=== PATIENT | male | born 1970 | race Hispanic/Latino ===

== ENCOUNTER 2017-09-20 14:19 | Emergency (ER) | payer MEDICAID ==
[2017-09-20 14:57] VITALS: RESP 18; TEMP 98.1
[2017-09-20 15:42] LABS: PH,URINE 5.5 (4.7-8.0); URINE BILIRUBIN SMALL (NEGATIVE); URINE BLOOD LARGE (NEGATIVE); URINE GLUCOSE (UA) NEGATIVE (NEGATIVE); URINE LEUKOCYTE ESTERASE TRACE Leu/uL (NEGATIVE); URINE NITRATE POSITIVE (NEGATIVE); URINE PROTEIN 100 mg/dL (<30 mg/dL)
[2017-09-20] MEDS ORDERED: Sodium Chloride 0.9% 1,000 ML IV STA (15:42)
[2017-09-20 15:43] LABS: URINE APPEARANCE CLOUDY (CLEAR); URINE COLOR RED (YELLOW)
[2017-09-20 15:49] LABS: URINE RBC TNTC /hpf (0-2)
[2017-09-20 15:50] LABS: URINE BACTERIA MANY (NEG)
--- NOTE | 2017-09-20 16:07 | ED PDOC ---
Arrival/HPI - General Chief Complaint: Male Genitourinary Time Seen by Provider: 09/20/17 15:29 Historian: Patient - History of Present Illness Narrative History of Present Illness (Text): 09/20/17 16:04 A 47 year old male, whose past medical history includes diabetes, kidney stones , and hepatitis c, presents to the emergency department complaining of left flank pain for 4 days. History obtained through computer talent partner #[id number]. Patient notes blood in urine and increased frequency. He reports he has been eating and drinking without any difficulties. Patient denies any fever, chills, nausea, vomiting, abdominal pain, dysuria, penile pain, testicular pain, chest pain, shortness of breath or any other complaints. Patient reports while in [place] he was diagnosed with kidney stones, given lithotripsy, and only passed 2 out of 3 stones. PMD: Dr. Collado Time/Duration: Other (4 days) Symptom Course: Unchanged Quality: Other Context: Home Past Medical History - Provider Review Nursing Documentation Reviewed: Yes - Infectious Disease Hx of Infectious Diseases: None - Cardiac Hx Cardiac Disorders: No - Pulmonary Hx Respiratory Disorders: No - Neurological Hx Neurological Disorder: No - HEENT Hx HEENT Disorder: No - Renal Hx Renal Disorder: Yes Hx Kidney Stones: Yes - Endocrine/Metabolic Hx Endocrine Disorders: Yes Hx Diabetes Mellitus Type 2: Yes - Hematological/Oncological Hx Blood Disorders: Yes Hx Hepatitis C: Yes - Integumentary Hx Dermatological Disorder: No - Musculoskeletal/Rheumatological Hx Musculoskeletal Disorders: No - Gastrointestinal Hx Gastrointestinal Disorders: Yes Other/Comment: HEP C - Genitourinary/Gynecological Hx Genitourinary Disorders: Yes Other/Comment: KIDNEY STONES - Psychiatric Hx Substance Use: No - Surgical History Other/Comment: L KIDNEY R/T STONES - Anesthesia Hx Anesthesia: Yes Family/Social History - Physician Review Nursing Documentation Reviewed: Yes Family/Social History: No Known Family HX Smoking Status: Light Smoker < 10 Cigarettes Daily Hx Alcohol Use: No Hx Substance Use: No Allergies/Home Meds Allergies/Adverse Reactions: Allergies No Known Allergies Allergy (Verified 09/20/17 14:52) Review of Systems - Physician Review All systems were reviewed & negative as marked: Yes - Review of Systems Constitutional: absent: Fevers, Night Sweats Respiratory: absent: SOB Cardiovascular: absent: Chest Pain Gastrointestinal: absent: Abdominal Pain, Nausea, Vomiting, Appetite Changes Genitourinary Male: Frequency, Hematuria. absent: Dysuria, Other (Penile or testicular pain) Physical Exam Vital Signs Reviewed: Yes Vital Signs Temp Pulse Resp BP Pulse Ox 09/20/17 17:47 79 18 118/71 98 09/20/17 16:42 89 18 121/79 98 09/20/17 14:53 98.1 F 99 H 18 119/82 97 Temperature: Afebrile Blood Pressure: Normal Pulse: Tachycardic Respiratory Rate: Normal Appearance: Positive for: Well-Appearing, Non-Toxic, Comfortable Pain Distress: None Mental Status: Positive for: Alert and Oriented X 3 - Systems Exam Head: Present: Atraumatic, Normocephalic Pupils: Present: PERRL Extroacular Muscles: Present: EOMI Conjunctiva: Present: Normal Mouth: Present: Moist Mucous Membranes Neck: Present: Normal Range of Motion Respiratory/Chest: Present: Clear to Auscultation, Good Air Exchange. No: Respiratory Distress, Accessory Muscle Use Cardiovascular: Present: Regular Rate and Rhythm, Normal S1, S2. No: Murmurs Abdomen: Present: Normal Bowel Sounds. No: Tenderness, Distention, Peritoneal Signs Back: Present: CVA Tenderness (Left CVA tenderness) Upper Extremity: Present: Normal Inspection. No: Cyanosis, Edema Lower Extremity: Present: Normal Inspection. No: Edema Neurological: Present: GCS=15, CN II-XII Intact, Speech Normal Skin: Present: Warm, Dry, Normal Color. No: Rashes Psychiatric: Present: Alert, Oriented x 3, Normal Insight, Normal Concentration Medical Decision Making ED Course and Treatment: 09/20/17 16:04 Impression: A 47 year old male with left flank pain. Patient notes hematuria and increased frequency. Differential Diagnosis included but are not limited to: Left flank pain rule out Kidney Stone Plan: -- Abdominal CT -- Labs -- Urine culture -- Toradol and IV fluids -- Reassess and disposition Progress Notes: Report Date : 09/20/2017 17:30:46 PROCEDURE: CT Abdomen and Pelvis without Oral or IV contrast. Dictator : Deborah Womack MD IMPRESSION: Partially calcified 3.9 x 2.6 cm left adrenal gland mass. Nonobstructing 9 mm left lower pole renal calculus. 3 mm calculus within the proximal right ureter without evidence of hydronephrosis. Additional nonobstructing 3 mm right lower pole renal calculus. No hydronephrosis bilaterally. Case discussed with Dr. Flores, who agrees with plan to have patient continue on Motrin, Keflex and Flomax. States he will see patient tomorrow morning in his office. Spoke with patient, through talent partner [employer] #[id number]. Discussed CT, lab and urinalysis results. Instructed patient to continue taking Motrin, Keflex and Flomax at home as prescribed. I explained to patient the importance of following up with Dr. Flores tomorrow at 10:00 am for his scheduled appointment at the [facility]. - Lab Interpretations Microbiology Results: Microbiology Results 09/20/17 15:21 Urine Urine Culture - Final No Growth (<1,000 CFU/ML) Lab Results: 09/20/17 16:00 09/20/17 16:00 Lab Results 09/20/17 16:00: Sodium 138, Potassium 4.3, Chloride 100, Carbon Dioxide 26, Anion Gap 16, BUN 15, Creatinine 0.8, Est GFR ( Amer) > 60, Est GFR (Non- Af Amer) > 60, Random Glucose 125 H, Calcium 9.9, Total Bilirubin 0.4, AST 35, ALT 63 H, Alkaline Phosphatase 58, Total Protein 8.1, Albumin 4.4, Globulin 3.7 , Albumin/Globulin Ratio 1.2 09/20/17 16:00: WBC 6.8 D, RBC 5.20, Hgb 14.4, Hct 44.1, MCV 84.8, MCH 27.7, MCHC 32.7, RDW 13.7, Plt Count 132, MPV 12.3 H, Gran % 52.3, Lymph % (Auto) 34.9 , [place] % (Auto) 8.7 H, Eos % (Auto) 3.5, Baso % (Auto) 0.6, Gran # 3.55, Lymph # 2.4, [place] # 0.6, Eos # 0.2, Baso # 0.04 09/20/17 15:21: Urine Color Red, Urine Appearance Cloudy, Urine pH 5.5, Ur Specific [place] >= 1.030, Urine Protein 100 H, Urine Glucose (UA) Negative, Urine Ketones Trace H, Urine Blood Large H, Urine Nitrate Positive H, Urine Bilirubin Small H, Urine Urobilinogen 1.0 H, Ur Leukocyte Esterase Trace H, Urine RBC Tntc, Urine WBC 10 - 15, Ur Epithelial Cells 6 - 8, Urine Bacteria Many I have reviewed the lab results: Yes - RAD Interpretation Radiology Orders: 09/20/17 15:42 ABD & PELVIS W/O PO OR IV CONT [CT] Stat - Medication Orders Current Medication Orders: Discontinued Medications Cephalexin Monohydrate (Keflex) 500 mg PO STAT STA PRN Reason: Protocol Stop: 09/20/17 17:43 Last Admin: 09/20/17 18:37 Dose: 500 mg Sodium Chloride (Sodium Chloride 0.9%) 1,000 mls @ 999 mls/hr IV .Q1H1M STA Stop: 09/20/17 16:42 Last Admin: 09/20/17 15:59 Dose: 999 mls/hr eMAR Start Stop Document 09/20/17 15:59 GMD (Rec: 09/20/17 15:59 GMD [id number]) Intravenous Solution Start Date 09/20/17 Start Time 15:59 End Date 09/20/17 End time 17:00 Total Infusion Time 61 Ketorolac Tromethamine (Toradol) 30 mg IVP STAT STA Stop: 09/20/17 15:42 Last Admin: 09/20/17 15:59 Dose: 30 mg MAR Pain Assessment Document 09/20/17 15:59 GMD (Rec: 09/20/17 15:59 GMD [place] [id number]) Pain Reassessment Is this a pain reassessment? No Sleep Is patient sleeping during reassessment? No Presence of Pain Presence of Pain Yes IVP Administration Document 09/20/17 15:59 GMD (Rec: 09/20/17 15:[id number]) Charges for Administration # of IVP Administrations 1 Tamsulosin HCl (Flomax) 0.4 mg PO STAT STA Stop: 09/20/17 18:24 Last Admin: 09/20/17 18:37 Dose: 0.4 mg - Scribe Statement The provider has reviewed the documentation as recorded by the Edenilsonibe Raegan Renee Provider Scribe Attestation: All medical record entries made by the Scribe were at my direction and personally dictated by me. I have reviewed the chart and agree that the record accurately reflects my personal performance of the history, physical exam, medical decision making, and the department course for this patient. I have also personally directed, reviewed, and agree with the discharge instructions and disposition. Disposition/Present on Arrival - Present on Arrival Any Indicators Present on Arrival: Yes History of DVT/PE: No History of Uncontrolled Diabetes: Yes Urinary Catheter: No History of Decub. Ulcer: No History Surgical Site Infection Following: None - Disposition Have Diagnosis and Disposition been Completed?: Yes Diagnosis: Kidney stone, UTI (urinary tract infection) Disposition: HOME/ ROUTINE Disposition Time: 18:37 Patient Plan: Discharge Condition: IMPROVED Discharge Instructions (ExitCare): Kidney Stones (ED), Urinary Tract Infection in Men (ED) Additional Instructions: Mr Sandoval, thank you for letting us take care of you today. Your provider was Dr. Kapoor. You were treated for UTI, Kidney Stone. The emergency medical care you received today was directed at your acute symptoms. If you were prescribed any medication, please fill it and take as directed. It may take several days for your symptoms to resolve. Return to the Emergency Department if your symptoms worsen, do not improve, or if you have any other problems. Make sure to see Dr. Flores tomorrow at 10 am in his [place] office at: [facility] [place] [address] Please contact your doctor or call one of the physicians/clinics you have been referred to that are listed on the Patient Visit Information form that is included in your discharge packet. Bring any paperwork you were given at discharge with you along with any medications you are taking to your follow up visit. Our treatment cannot replace ongoing medical care by a primary care provider (PCP) outside of the emergency department. Thank you for allowing the [facility] team to be part of your care today. If you had an X-Ray or CT scan: A Radiologist will review the ED reading if any change in treatment is needed we will contact you. If you had a blood, urine, or wound culture: It will take several days for the results, if any change in treatment is needed we will contact you. If you had an STI test: It will take 48 hours for the results. Please call after 1 week if you have not heard back. Prescriptions: Cephalexin [Keflex] 500 mg PO BID #14 capsule Ibuprofen [Motrin] 600 mg PO Q6 PRN #30 tab PRN Reason: Pain, Moderate (4-7) Tamsulosin HCl [Flomax] 0.4 mg PO HS #20 cap.er.24h Referrals: Jacey Collado MD [Primary Care Provider] - Follow up with primary Nate Flores MD [Staff Provider] - Follow up with primary Forms: [employer] ([place])
[2017-09-20 16:12] LABS: BASO # 0.04 K/mm3 (0.0-2.0); BASO % 0.6 % (0.0-3.0); EOS # 0.2 (0.0-0.7); EOS % 3.5 % (1.5-5.0); GRAN # 3.55 (1.4-6.5); GRAN % 52.3 % (50.0-68.0); HEMOGLOBIN 14.4 g/dL (14.0-18.0); LYMPH # 2.4 (1.2-3.4); LYMPH % 34.9 % (22.0-35.0); MEAN CELL VOLUME 84.8 fl (80.0-105.0); MEAN CORPUSCULAR HEMOGLOBIN 27.7 pg (25.0-35.0); MEAN CORPUSCULAR HGB CONC 32.7 g/dl (31.0-37.0); MEAN PLATELET VOLUME 12.3 fl (7.0-11.0); MONO # 0.6 (0.1-0.6); MONO % 8.7 % (1.0-6.0); RBC 5.2 10^6/uL (3.5-6.1); RED CELL DISTRIBUTION WIDTH 13.7 % (11.5-14.5); WHITE BLOOD COUNT 6.8 10^3/ul (4.5-11.0)
[2017-09-20 16:33] LABS: ALB/GLOB RATIO 1.2 (1.1-1.8); ALBUMIN 4.4 g/dL (3.0-4.8); ALT/SGPT 63 U/L (7-56); AST/SGOT 35 U/L (17-59); BLOOD UREA NITROGEN 15 mg/dL (7-21); CALCIUM 9.9 mg/dL (8.4-10.5); GFR AFRICAN-AMERICAN > 60; GFR NON-AFRICAN AMERICAN > 60
[2017-09-20 16:42] VITALS: O2SAT 98
--- NOTE | 2017-09-20 17:32 | CT ---
PROCEDURE: CT Abdomen and Pelvis without Oral or IV contrast. HISTORY: left flank pain r/o kidney stone COMPARISON: CT abdomen chest performed 06/18/16 TECHNIQUE: Contiguous axial images of the abdomen and pelvis. No oral or IV contrast administered. Coronal and Sagittal reformats generated. Radiation dose: Total exam DLP = 1029.62 mGy-cm. This CT exam was performed using one or more of the following dose reduction techniques: Automated exposure control, adjustment of the mA and/or kV according to patient size, and/or use of iterative reconstruction technique. FINDINGS: There is limited evaluation of the solid organs without the administration of IV contrast. LOWER THORAX: No visible consolidation, pleural effusion, or pneumothorax. GALLBLADDER AND BILE DUCTS: Unremarkable. PANCREAS: Unremarkable. SPLEEN: Splenomegaly. At least 2 probable splenules. ADRENALS: Partially calcified 3.9 x 2.6 cm left adrenal gland mass. Unenhanced unremarkable appearance of the right adrenal gland. KIDNEYS AND URETERS: Nonobstructing 9 mm left lower pole renal calculus. 3 mm calculus within the proximal right ureter without evidence of hydronephrosis. Additional nonobstructing 3 mm right lower pole renal calculus. No hydronephrosis bilaterally. BLADDER: The urinary bladder appears unremarkable. REPRODUCTIVE: Uterus is present. APPENDIX: The appendix is not identified. No secondary signs of acute appendicitis. BOWEL: The stomach is nondistended. Lack of oral contrast limits evaluation for bowel pathology. The bowel loops appear within normal limits of caliber without evidence of intestinal obstruction. PERITONEUM: No significant free fluid. No definite free air. LYMPH NODES: No bulky lymphadenopathy identified. VASCULATURE: No aortic aneurysm. BONES: No acute osseous abnormality is detected. OTHER FINDINGS: None. IMPRESSION: Partially calcified 3.9 x 2.6 cm left adrenal gland mass. Nonobstructing 9 mm left lower pole renal calculus. 3 mm calculus within the proximal right ureter without evidence of hydronephrosis. Additional nonobstructing 3 mm right lower pole renal calculus. No hydronephrosis bilaterally.
[2017-09-20 17:47] VITALS: BP 118/71; PULSE 79
== END 2017-09-20 18:37 | disposition home or self-care (01) ==
LOC: ED 14:19
DX: N20.0 Calculus of kidney (principal); N39.0 Urinary tract infection, site not specified
CPT/HCPCS: 74176; 80053; 81001; 85025; 87086; 96361; 96374; 99284; J1885; J7040

== ENCOUNTER 2017-09-21 14:26 | Emergency (ER) | payer MEDICAID ==
[2017-09-21 14:30] VITALS: BMI 35.2
[2017-09-21 14:34] VITALS: BP 126/81; PULSE 79; RESP 18; TEMP 97.8; O2SAT 100
--- NOTE | 2017-09-21 14:41 | ED PDOC ---
Arrival/HPI - General Chief Complaint: Back Pain Time Seen by Provider: 09/21/17 14:41 Historian: Patient - History of Present Illness Narrative History of Present Illness (Text): 09/21/17 14:41 A 47 year old male, whose past medical history includes diabetes, kidney stones , and hepatitis c, presents to the emergency department stating that Dr. Flores told him to come to ED for revaluation of left flank pain. Patient stated he was Dx. Renal stone, and he continues with pain. Patient denies other complains. Patient history was taken with use of viscose cellar charge hand, Mrs. Everardo Frias. #[id number]. Time/Duration: Other (see hpi) Context: Home Past Medical History - Provider Review Nursing Documentation Reviewed: Yes - Infectious Disease Hx of Infectious Diseases: None - Cardiac Hx Cardiac Disorders: No - Pulmonary Hx Respiratory Disorders: No - Neurological Hx Neurological Disorder: No - HEENT Hx HEENT Disorder: No - Renal Hx Renal Disorder: Yes Hx Kidney Stones: Yes - Endocrine/Metabolic Hx Endocrine Disorders: Yes Hx Diabetes Mellitus Type 2: Yes - Hematological/Oncological Hx Blood Disorders: Yes Hx Hepatitis C: Yes - Integumentary Hx Dermatological Disorder: No - Musculoskeletal/Rheumatological Hx Musculoskeletal Disorders: No - Gastrointestinal Hx Gastrointestinal Disorders: Yes Other/Comment: HEP C - Genitourinary/Gynecological Hx Genitourinary Disorders: Yes Other/Comment: KIDNEY STONES - Psychiatric Hx Substance Use: No - Surgical History Other/Comment: L KIDNEY R/T STONES - Anesthesia Hx Anesthesia: Yes Hx Anesthesia Reactions: No Hx Malignant Hyperthermia: No Family/Social History - Physician Review Nursing Documentation Reviewed: Yes Family/Social History: Other (noncontributory) Smoking Status: Light Smoker < 10 Cigarettes Daily Hx Alcohol Use: No Hx Substance Use: No Allergies/Home Meds Allergies/Adverse Reactions: Allergies No Known Allergies Allergy (Verified 09/20/17 14:52) Review of Systems - Review of Systems Constitutional: Normal. absent: Fatigue, Weight Change, Fevers Eyes: Normal ENT: Normal Respiratory: Normal Cardiovascular: Normal Gastrointestinal: Other (left flank pain) Genitourinary Male: Normal Musculoskeletal: Normal Skin: Normal Neurological: Normal Endocrine: Normal Hemo/Lymphatic: Normal Psychiatric: Normal Physical Exam Vital Signs Temp Pulse Resp BP Pulse Ox 09/21/17 14:26 97.8 F 79 18 126/81 100 Temperature: Afebrile Blood Pressure: Normal Pulse: Regular Respiratory Rate: Normal Appearance: Positive for: Well-Appearing, Non-Toxic, Comfortable Pain Distress: None Mental Status: Positive for: Alert and Oriented X 3 - Systems Exam Head: Present: Atraumatic, Normocephalic Pupils: Present: PERRL Extroacular Muscles: Present: EOMI Conjunctiva: Present: Normal Mouth: Present: Moist Mucous Membranes Neck: Present: Normal Range of Motion Respiratory/Chest: Present: Clear to Auscultation, Good Air Exchange. No: Respiratory Distress, Accessory Muscle Use Cardiovascular: Present: Regular Rate and Rhythm, Normal S1, S2. No: Murmurs Abdomen: Present: Tenderness (mild left flank tenderness.), Normal Bowel Sounds. No: Distention, Peritoneal Signs Back: Present: Normal Inspection Upper Extremity: Present: Normal Inspection. No: Cyanosis, Edema Lower Extremity: Present: Normal Inspection. No: Edema Neurological: Present: GCS=15, CN II-XII Intact, Speech Normal Skin: Present: Warm, Dry, Normal Color. No: Rashes Psychiatric: Present: Alert, Oriented x 3, Normal Insight, Normal Concentration Medical Decision Making ED Course and Treatment: 09/21/17 14:47 Patient came to ED for surgical procedure by DR. Flores. According to patient , he was told to come today at [address] Flores. Patient is refusing any labs, or medication till seen by Dr. Flores. Patient is angry that I am asking him question about his pain, and medical history since all information is in the computer. He stated to viscose cellar charge hand that he dislike this hospital, and he consider this hospital as "garbage". He only came to this hospital because Dr. Flores told him to come. 09/21/17 14:58 I have left a voice message to Dr. Flores cellphone answer system 09/21/17 15:[address] Flores called again. 09/21/17 15:37 Patient told patient he does not want pain medication or blood test. 09/21/17 16:33 I had ED director calling Dr. Flores 09/21/17 16:53 Dr. Ashley Flores called me back. He stated to keep patient NPO. He said he will text Dr. Nate Flores, and he also recommending me to keep trying calling Dr. Flores. 09/21/17 16:55 I explained patient the reason of the delay. Patient does not wan to wait any longer. Patient is angry and he wants to leave ED. 09/21/17 16:57 I reviewed AMA form with patient regarding risk in leaving AMA. Patient refused my recommendation, and he understood risk. Patient's son has been in the ED during most of patient ED visit. Son also understood my recommendation and risk. I signed the form, but he refused to sign the AMA form. Leaving Against Medical Advice (AMA): This patient is choosing to leave against medical advice. The EP has personally explained to the pt that choosing to do so may result in permanent bodily harm or . The EP discussed at great length that without further evaluation and monitoring there may be unforeseen circumstances and/or deterioration causing permanent bodily harm or as a result of their choice. The pt verbalized these risks back to the physician in laymans terms. The pt is alert, oriented, and shows the mental capacity to make clear decisions regarding the pts health care at this time. The pt continues to wish to leave against medical advice. In light of the pts decision to leave AMA, follow-up has been recommended and the pt is aware of the importance of following up as instructed. The pt has been advised that they should return to the ED immediately if they change their mind at any time, or if condition begins to change or worsen in any way. Re-evaluation Time: 17:00 Reassessment Condition: Re-examined, Unchanged - Lab Interpretations I have reviewed the lab results: Yes (from yesterday. Patient refused new labs) - Medication Orders Current Medication Orders: Discontinued Medications Sodium Chloride (Sodium Chloride 0.9%) 1,000 mls @ 999 mls/hr IV .Q1H1M STA Stop: 09/21/17 16:21 Last Admin: 09/21/17 16:55 Dose: Not Given Non-Admin Reason: Patient Refused Ketorolac Tromethamine (Toradol) 15 mg IVP STAT STA Stop: 09/21/17 15:22 Last Admin: 09/21/17 16:56 Dose: Not Given Non-Admin Reason: Patient Refused Disposition/Present on Arrival - Present on Arrival Any Indicators Present on Arrival: No History of DVT/PE: No History of Uncontrolled Diabetes: Yes Urinary Catheter: No History of Decub. Ulcer: No History Surgical Site Infection Following: None - Disposition Have Diagnosis and Disposition been Completed?: Yes Diagnosis: Left flank pain, Renal stone Disposition: AGAINST MEDICAL ADVICE Disposition Time: 17:00 Condition: UNKNOWN Additional Instructions: Call Dr. Sandra HAGEN. Return to emergency at any time for worsening of symptoms. Continue with Keflex as instructed by doctor. Referrals: Jacey Collado MD [Primary Care Provider] - Follow up with primary Nate Flores MD [Staff Provider] - Follow up with primary Forms: [employer] ([place])
[2017-09-21] MEDS ORDERED: Sodium Chloride 0.9% 1,000 ML IV STA (15:21)
== END 2017-09-21 16:55 | disposition left against medical advice (07) ==
LOC: ED 14:26
DX: N20.0 Calculus of kidney (principal); R10.9 Unspecified abdominal pain

== ENCOUNTER 2017-12-10 11:19 | Emergency (ER) | payer MEDICAID ==
[2017-12-10] MEDS ORDERED: Sodium Chloride 0.9% 500 ML IV STA (11:38)
--- NOTE | 2017-12-10 11:42 | ED PDOC ---
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 Patient also complains of associated nausea, vomiting, and hematuria. Patient denies any diarrhea, fever, chills, chest pain, shortness of breath, neck pain, headache, dizziness, or any other complaints. [employer] Server #[id number] used to obtain history. 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 Unclear if the patient had a lithotripsy or cystoscopy in [place] last month for a left kidney stone. No fever. Past Medical History - Provider Review Nursing Documentation Reviewed: Yes - Infectious Disease Hx of Infectious Diseases: None - Cardiac Hx Cardiac Disorders: No - Pulmonary Hx Respiratory Disorders: No - Neurological Hx Neurological Disorder: No - HEENT Hx HEENT Disorder: No - Renal Hx Renal Disorder: Yes Hx Kidney Stones: Yes - Endocrine/Metabolic Hx Endocrine Disorders: Yes Hx Diabetes Mellitus Type 2: Yes - Hematological/Oncological Hx Blood Disorders: Yes Hx Hepatitis C: Yes - Integumentary Hx Dermatological Disorder: No - Musculoskeletal/Rheumatological Hx Musculoskeletal Disorders: No - Gastrointestinal Hx Gastrointestinal Disorders: Yes Other/Comment: HEP C - Genitourinary/Gynecological Hx Genitourinary Disorders: Yes Other/Comment: KIDNEY STONES - Psychiatric Hx Substance Use: No - Surgical History Other/Comment: L KIDNEY R/T STONES - Anesthesia Hx Anesthesia: Yes Family/Social History - Physician Review Nursing Documentation Reviewed: Yes Family/Social History: Unknown Family HX Smoking Status: Light Smoker < 10 Cigarettes Daily Hx Alcohol Use: No Hx Substance Use: No Allergies/Home Meds Allergies/Adverse Reactions: Allergies No Known Allergies Allergy (Verified 09/20/17 14:52) Home Medications: Home Meds Medication Instructions Recorded Confirmed Metformin HCl [Glucophage] 1,000 mg PO BID 12/10/17 12/10/17 Review of Systems - Physician Review All systems were reviewed & negative as marked: Yes - Review of Systems Constitutional: absent: Fevers Respiratory: absent: SOB Cardiovascular: absent: Chest Pain Gastrointestinal: Abdominal Pain, Nausea, Vomiting. absent: Diarrhea Genitourinary Male: Frequency, Hematuria Musculoskeletal: Back Pain (right flank pain). absent: Neck Pain Neurological: absent: Headache, Dizziness Physical Exam Vital Signs Reviewed: Yes Vital Signs Temp Pulse Resp BP Pulse Ox 12/10/17 12:07 84 16 148/94 H 98 12/10/17 11:41 98.1 F 95 H 20 153/110 H 99 12/10/17 11:19 98.1 F 95 H 20 153/110 H 99 Temperature: Afebrile Blood Pressure: Hypertensive Pulse: Regular Respiratory Rate: Normal Appearance: Positive for: Uncomfortable, Other (obese) Pain Distress: Moderate Mental Status: Positive for: other (Awake and alert) - Systems Exam Head: Present: Atraumatic, Normocephalic Pupils: Present: PERRL Extroacular Muscles: Present: EOMI Conjunctiva: Present: Normal Mouth: Present: Moist Mucous Membranes Neck: Present: Normal Range of Motion Respiratory/Chest: Present: Clear to Auscultation, Good Air Exchange. No: Respiratory Distress, Accessory Muscle Use Cardiovascular: Present: Regular Rate and Rhythm, Normal S1, S2. No: Murmurs Abdomen: Present: Normal Bowel Sounds. No: Tenderness, Distention, Peritoneal Signs, Rebound, Guarding Back: Present: Normal Inspection Upper Extremity: Present: Normal Inspection. No: Cyanosis, Edema Lower Extremity: Present: Normal Inspection. No: Edema Neurological: Present: GCS=15, CN II-XII Intact, Speech Normal, Motor Func Grossly Intact Skin: Present: Warm, Normal Color, Diaphoretic. No: Rashes Psychiatric: Present: Alert Medical Decision Making ED Course and Treatment: 12/10/17 11:46 Impression: 47 year old male presents to the Emergency department complaining of right flank and right lower quadrant pain. Differential Diagnosis included but are not limited to: kidney stone Plan: -- CT scan of the abdomen and pelvis -- Urinalysis -- Labs -- Toradol, Zofran, Soidum Chloride IV fluids -- Reassess and disposition Prior Visits: Notes and results from previous visits were reviewed. Patient was last seen in the emergency department on 09/21/17 for left flank pain. Patient was diagnosed with left flank pain and renal stone but he left against medical advice. Progress Notes: 12/10/17 13:36 Symptoms have markedly improved. Patient will be discharged home with pain medication and to follow-up with his urologist Dr. Flores. Follow up in the ER as needed. - Lab Interpretations Lab Results: 12/10/17 11:40 12/10/17 11:40 Lab Results 12/10/17 12:00: Urine Color Yellow, Urine Appearance Cloudy, Urine pH 6.0, Ur Specific Connell 1.025, Urine Protein 30 H, Urine Glucose (UA) >=1000, Urine Ketones Negative, Urine Blood Large H, Urine Nitrate Negative, Urine Bilirubin Negative, Urine Urobilinogen 0.2, Ur Leukocyte Esterase Negative, Urine RBC Tntc , Urine WBC 0 - 2, Urine Bacteria Few 12/10/17 11:40: Sodium 136, Potassium 4.2, Chloride 101, Carbon Dioxide 24, Anion Gap 14, BUN 22 H, Creatinine 1.1, Est GFR ( Amer) > 60, Est GFR ( Non-Af Amer) > 60, Random Glucose 276 H, Calcium 9.6, Total Bilirubin 0.4, AST 28, ALT 51, Alkaline Phosphatase 56, Total Protein 7.2, Albumin 4.0, Globulin 3.2, Albumin/Globulin Ratio 1.2, Lipase 107 12/10/17 11:40: WBC 7.7, RBC 4.94, Hgb 13.5 L, Hct 40.7 L, MCV 82.4, MCH 27.3, MCHC 33.2, RDW 13.6, Plt Count 115 L, MPV 12.3 H, Gran % 68.0, Lymph % (Auto) 18.8 L, Lane % (Auto) 10.2 H, Eos % (Auto) 2.6, Baso % (Auto) 0.4, Gran # 5.22, Lymph # (Auto) 1.4, Lane # (Auto) 0.8 H, Eos # (Auto) 0.2, Baso # (Auto) 0.03 - RAD Interpretation Narrative RAD Interpretations (Text): 12/10/2017 13:10:43 PROCEDURE: CT Abdomen and Pelvis without intravenous contrast FINDINGS: LOWER THORAX: Unremarkable. LIVER: Hepatomegaly is again noted. Heterogeneous low-attenuation of the liver is again noted suggestive but nonspecific for zmgw-[id number]-tkdfrbma hepatic steatosis. GALLBLADDER AND BILE DUCTS: No evidence of acute cholecystitis. PANCREAS: Unremarkable. No gross lesion or ductal dilatation. SPLEEN: The spleen is mildly enlarged. ADRENALS: Again seen is left adrenal bipolar mass measures 3.6 centimeter in the largest AP diameter and 2.9 centimeter in the transverse diameter contains neural calcification. The right adrenal gland is grossly unremarkable. KIDNEYS AND URETERS: Interval appearance of vtkw-vs-vcacwert right hydronephrosis and hydroureter up to 6 millimeter calculus at the mid right ureter. There is a qtsk-qu-xxipithc right perinephric stranding. Punctate less than 2 millimeter calcification at the right kidney are noted may represent nonobstructing renal calculi. There is 3 millimeter nonobstructing calculus at the midpole of the left kidney. There is also 9 millimeter calcification at the lower pole of the left kidney. Mildly dilated left renal pelvis is again noted. The left ureter is not dilated. VASCULATURE: Unremarkable. No aortic aneurysm. BOWEL: Unremarkable. No obstruction. No gross mural thickening. APPENDIX: There is no evidence of appendicitis. PERITONEUM: Unremarkable. No free fluid. No free air. LYMPH NODES: Unremarkable. No enlarged lymph nodes. BLADDER: Unremarkable. REPRODUCTIVE: Unremarkable. BONES: No acute fracture. OTHER FINDINGS: None. IMPRESSION: Urak-cy-zroakdpw right hydronephrosis and hydroureter up to 6 millimeter calculus at the mid right ureter. Nonobstructing left renal calculi. Otherwise no evidence of acute pathology in the abdomen and pelvis. 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 - Medication Orders Current Medication Orders: Discontinued Medications Sodium Chloride (Sodium Chloride 0.9%) 500 mls @ 1,000 mls/hr IV .Q30M STA Stop: 12/10/17 12:07 Last Admin: 12/10/17 12:05 Dose: 1,000 mls/hr eMAR Start Stop Document 12/10/17 12:05 SRE (Rec: 12/10/17 12:05 SRE [id number]) Intravenous Solution Start Date 12/10/17 Start Time 11:40 End Date 12/10/17 End time 12:10 Total Infusion Time 30 Ketorolac Tromethamine (Toradol) 30 mg IVP STAT STA Stop: 12/10/17 11:39 Last Admin: 12/10/17 11:50 Dose: 30 mg MAR Pain Assessment Document 12/10/17 11:50 SRE (Rec: 12/10/17 12:03 SRE [id number]) Pain Reassessment Is this a pain reassessment? Yes Sleep Is patient sleeping during reassessment? No Presence of Pain Presence of Pain Yes Pain Scale Used Pain Scale Used Numeric Location Left, Right or Bilateral Right Pain Location Body Site Abdomen Description Description Constant IVP Administration Document 12/10/17 11:50 SRE (Rec: 12/10/17 12:03 SRE [id number]) Charges for Administration # of IVP Administrations 1 Ondansetron HCl (Zofran Inj) 4 mg IVP STAT STA Stop: 12/10/17 11:39 Last Admin: 12/10/17 11:50 Dose: 4 mg IVP Administration Document 12/10/17 11:50 SRE (Rec: 12/10/17 12:04 SRE [id number]) Charges for Administration # of IVP Administrations 1 - Scribe Statement The provider has reviewed the documentation as recorded by the Scribnery Womack All medical record entries made by the Edenilsonibnery were at my direction and personally dictated by me. I have reviewed the chart and agree that the record accurately reflects my personal performance of the history, physical exam, medical decision making, and the department course for this patient. I have also personally directed, reviewed, and agree with the discharge instructions and disposition. Disposition/Present on Arrival - Present on Arrival Any Indicators Present on Arrival: No History of DVT/PE: No History of Uncontrolled Diabetes: Yes Urinary Catheter: No History of Decub. Ulcer: No History Surgical Site Infection Following: None - Disposition Have Diagnosis and Disposition been Completed?: Yes Diagnosis: Renal colic on right side, Kidney stone on right side Disposition: HOME/ ROUTINE Disposition Time: 13:37 Patient Plan: Discharge Patient Problems: Current Active Problems Problem Status Onset Kidney stone on right side Acute Renal colic on right side Acute Condition: IMPROVED Discharge Instructions (ExitCare): Kidney Stones in Adults Additional Instructions: Increase fluids. Follow-up with urologist. Follow-up in ED as needed. Prescriptions: oxyCODONE/Acetaminophen [Percocet 5/325 mg Tab] 1 ea PO Q6 #15 tab Ondansetron [Zofran Odt] 4 mg SL Q6 #20 odt Referrals: Jacey Collado MD [Primary Care Provider] - Follow up with primary Nate Flores MD [Staff Provider] - Follow up with primary
[2017-12-10 11:49] VITALS: BMI 34.9
[2017-12-10 11:57] LABS: BASO # 0.03 K/mm3 (0.0-2.0); BASO % 0.4 % (0.0-3.0); EOS # 0.2 (0.0-0.7); EOS % 2.6 % (1.5-5.0); GRAN # 5.22 (1.4-6.5); HEMOGLOBIN 13.5 g/dL (14.0-18.0); LYMPH # 1.4 (1.2-3.4); LYMPH % 18.8 % (22.0-35.0); MEAN CELL VOLUME 82.4 fl (80.0-105.0); MEAN CORPUSCULAR HEMOGLOBIN 27.3 pg (25.0-35.0); MEAN CORPUSCULAR HGB CONC 33.2 g/dl (31.0-37.0); MEAN PLATELET VOLUME 12.3 fl (7.0-11.0); MONO # 0.8 (0.1-0.6); MONO % 10.2 % (1.0-6.0); RBC 4.94 10^6/uL (3.5-6.1); RED CELL DISTRIBUTION WIDTH 13.6 % (11.5-14.5); WHITE BLOOD COUNT 7.7 10^3/ul (4.5-11.0)
[2017-12-10 12:06] LABS: ALB/GLOB RATIO 1.2 (1.1-1.8); ALT/SGPT 51 U/L (7-56); AST/SGOT 28 U/L (17-59); BLOOD UREA NITROGEN 22 mg/dL (7-21); CALCIUM 9.6 mg/dL (8.4-10.5); GFR AFRICAN-AMERICAN > 60; GFR NON-AFRICAN AMERICAN > 60; LIPASE 107 U/L (23-300)
[2017-12-10 12:07] LABS: URINE BILIRUBIN NEGATIVE (NEGATIVE); URINE BLOOD LARGE (NEGATIVE); URINE GLUCOSE (UA) >=1000 mg/dL (NEGATIVE); URINE LEUKOCYTE ESTERASE NEGATIVE Leu/uL (NEGATIVE); URINE PROTEIN 30 mg/dL (<30 mg/dL); URINE UROBILINOGEN 0.2 E.U./dL (<1 E.U./dL)
[2017-12-10 12:09] LABS: URINE APPEARANCE CLOUDY (CLEAR); URINE COLOR YELLOW (YELLOW)
[2017-12-10 12:37] LABS: URINE BACTERIA FEW (NEG); URINE RBC TNTC /hpf (0-2); URINE WBC 0 - 2 /hpf (0-6)
--- NOTE | 2017-12-10 13:12 | CT ---
PROCEDURE: CT Abdomen and Pelvis without intravenous contrast HISTORY: right stone run COMPARISON: Comparison is made to the previous study dated 09/20/2017 TECHNIQUE: Axial and reformatted coronal and sagittal CT images of the abdomen and pelvis were obtained without IV contrast administration.. Contrast Dose: 0 Radiation dose: Total exam DLP = mGy-cm. This CT exam was performed using one or more of the following dose reduction techniques: Automated exposure control, adjustment of the mA and/or kV according to patient size, and/or use of iterative reconstruction technique. FINDINGS: LOWER THORAX: Unremarkable. LIVER: Hepatomegaly is again noted. Heterogeneous low-attenuation of the liver is again noted suggestive but nonspecific for iozn-rk-njrnvoiw hepatic steatosis. GALLBLADDER AND BILE DUCTS: No evidence of acute cholecystitis. PANCREAS: Unremarkable. No gross lesion or ductal dilatation. SPLEEN: The spleen is mildly enlarged. ADRENALS: Again seen is left adrenal bipolar mass measures 3.6 centimeter in the largest AP diameter and 2.9 centimeter in the transverse diameter contains neural calcification. The right adrenal gland is grossly unremarkable. KIDNEYS AND URETERS: Interval appearance of duwu-ni-uvwdlaan right hydronephrosis and hydroureter up to 6 millimeter calculus at the mid right ureter. There is a qwnt-fv-bcxirryo right perinephric stranding. Punctate less than 2 millimeter calcification at the right kidney are noted may represent nonobstructing renal calculi. There is 3 millimeter nonobstructing calculus at the midpole of the left kidney. There is also 9 millimeter calcification at the lower pole of the left kidney. Mildly dilated left renal pelvis is again noted. The left ureter is not dilated. VASCULATURE: Unremarkable. No aortic aneurysm. BOWEL: Unremarkable. No obstruction. No gross mural thickening. APPENDIX: There is no evidence of appendicitis. PERITONEUM: Unremarkable. No free fluid. No free air. LYMPH NODES: Unremarkable. No enlarged lymph nodes. BLADDER: Unremarkable. REPRODUCTIVE: Unremarkable. BONES: No acute fracture. OTHER FINDINGS: None. IMPRESSION: Odnj-je-zmojeeox right hydronephrosis and hydroureter up to 6 millimeter calculus at the mid right ureter. Nonobstructing left renal calculi. Otherwise no evidence of acute pathology in the abdomen and pelvis.
[2017-12-10 13:48] VITALS: BP 139/71; PULSE 79; RESP 20; TEMP 98; O2SAT 99
== END 2017-12-10 13:49 | disposition home or self-care (01) ==
LOC: ED 11:19
DX: N20.0 Calculus of kidney (principal); F17.210 Nicotine dependence, cigarettes, uncomplicated; E11.9 Type 2 diabetes mellitus without complications
CPT/HCPCS: 74176; 80053; 81001; 83690; 85025; 87086; 96374; 96375; 99285; J1885; J2405; J7040